=== PATIENT | female | born 1990 | race Two or more races ===

== ENCOUNTER 2018-03-28 13:14 | Outpatient (CLI) | payer OTHER ==
[~2018-03-28 13:14] MED LIST: BIRTH CONTROL PILLS
== END 2018-03-28 17:02 | disposition home or self-care (01) ==
LOC: RAD 13:14
DX: Z01.810 Encounter for preprocedural cardiovascular examination (principal)

== ENCOUNTER 2018-06-22 11:49 | Outpatient (CLI) | payer OTHER | END 2018-06-22 12:13 | disposition home or self-care (01) | LOC: EKG 11:49 | DX: R94.31 Abnormal electrocardiogram [ECG] [EKG] (principal) ==

== ENCOUNTER → 2018-09-13 | Outpatient (CLI) | payer OTHER | END | disposition home or self-care (01) | LOC: RAD 08:17 | DX: J32.8 Other chronic sinusitis (principal) ==

== ENCOUNTER → 2019-05-18 | Outpatient (CLI) | payer OTHER | END | disposition home or self-care (01) | LOC: SONOGRAMA 10:50 → MAMO-SONO 11:15 | DX: M54.2 Cervicalgia (principal) ==

== ENCOUNTER 2020-01-21 13:41 | Outpatient (CLI) | payer OTHER | END 2020-01-21 16:55 | disposition home or self-care (01) | LOC: OFIC 805 13:41 | PROVIDERS: ATTEND Otolaryngology Otology & Neurotology | DX: J30.89 Other allergic rhinitis (principal); H81.11 Benign paroxysmal vertigo, right ear ==

== ENCOUNTER 2021-05-22 15:30 | Outpatient (CLI) | payer OTHER | END 2021-05-22 16:30 | disposition home or self-care (01) | LOC: ASH CLINIC 15:30 | PROVIDERS: ATTEND General Practice | DX: U07.1 COVID-19 (principal); Z23 Encounter for immunization ==

== ENCOUNTER → 2021-05-22 | Emergency (ER) | payer OTHER ==
[~2021-05-22] VITALS: Ht 160 cm; Wt 54.4 kg
== END | disposition home or self-care (01) ==
LOC: ER 12:10
DX: U07.1 COVID-19 (principal)

== ENCOUNTER 2021-07-29 06:52 | Outpatient (CLI) | payer OTHER | END 2021-07-29 15:48 | disposition home or self-care (01) | LOC: SONOGRAMA 06:52 | DX: E04.1 Nontoxic single thyroid nodule (principal) ==

== ENCOUNTER 2021-08-05 08:00 | Outpatient (CLI) | payer OTHER | END 2021-08-05 08:30 | disposition home or self-care (01) | LOC: PPH VACUNA 08:00 | PROVIDERS: ATTEND Emergency Medicine Pediatric Emergency Medicine | DX: Z23 Encounter for immunization (principal) ==

== ENCOUNTER → 2022-09-30 | Outpatient (CLI) | payer OTHER | END | disposition home or self-care (01) | LOC: SONOGRAMA 08:59 | PROVIDERS: ATTEND Radiology Diagnostic Radiology | DX: E04.1 Nontoxic single thyroid nodule (principal) ==